=== PATIENT | male | born 1970 | race Caucasian/White ===

== ENCOUNTER 2016-11-02 09:18 | Emergency (ER) | payer OTHER ==
--- NOTE | 2016-11-02 10:07 | DIAGNOSTIC IMAGING REPORT ---
PROCEDURE: XR CHEST 1 VIEW INDICATION: CHEST PAIN TECHNIQUE: Portable AP view 09:54 a.m. COMPARISON: Chest x-ray 01/27/2016 FINDINGS: Lungs are clear. Heart and mediastinum are normal. Thorax is normal. No significant interval change. IMPRESSION: 1. Negative chest.
--- NOTE | 2016-11-02 11:50 | DIAGNOSTIC IMAGING REPORT ---
PROCEDURE: CTA THORAX ABDOMEN INDICATION: Chest pain. TECHNIQUE: 120 ml of Isovue 370 injected intravenously and axial images were obtained of the entire thorax and abdomen with 3D MIP sagittal and coronal reformations. COMPARISON: Chest x-ray 11/02/2016. FINDINGS: THORAX: Normal thoracic aorta with atherosclerosis, dissection or aneurysm. No evidence of pulmonary emboli. Lungs are clear. No effusion or adenopathy. Normal heart size. No pericardial effusion. Mild degenerative changes of the spine. ABDOMEN: No atherosclerosis, dissection or aneurysm. Cholecystectomy. Liver, pancreas, spleen, adrenal glands and kidneys are unremarkable. No retroperitoneal adenopathy. Moderate descending colon diverticulosis. Nonspecific bowel gas pattern. Surgical changes medial to the cecum suggestive of an appendectomy. No suspicious osseous lesions. IMPRESSION: 1. No evidence of an aortic aneurysm or dissection 2. No evidence of pulmonary emboli 3. Cholecystectomy 4. Descending colon diverticulosis 5. Results discussed with Dr. Ann All CT scans at this facility use dose modulation, iterative reconstruction, and/or weight-based dosing when appropriate to reduce radiation dose to as low as reasonably achievable.
--- NOTE | 2016-11-02 14:11 | ED CLINICAL REPORT ---
Clinical Report - Physicians/Mid Levels [facility] [address] [place] [address] 11/02/2016 9:18 [id number] Time Seen: 09:36 Nov 02 2016. Arrived- By private vehicle. Historian- patient. CPT: Critical care < 74 min plus (#[id number]) and 30-74 min plus (#[id number]). EKG interpretation (#[id number]). HISTORY OF PRESENT ILLNESS Chief Complaint: CHEST PAIN. At its maximum, severity described as 9 / 10. When seen in the E.D., severity described as 9 / 10. Modifying factors- worsened by exertion. Relieved by rest. It is described as pressure and it is described as located in the central chest and left chest area, neck and left shoulder. 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 Onset during light activity. No nausea, vomiting, difficulty breathing or diaphoresis. 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 ( [place] it was just related to the stress at work.). Recent medical care: Not recently seen/assessed. REVIEW OF SYSTEMS No fever, chills, cough, pedal edema or calf pain. No fainting episodes, sore throat, abdominal pain, black stools or difficulty with urination. No skin rash, enlarged lymph nodes or joint pain. All systems otherwise negative, except as recorded above. PAST HISTORY Diabetes mellitus. Hyperlipidemia. No history of aortic disease, coronary artery disease, congestive heart failure, heart rhythm problems or pulmonary embolism. No history of hypertension. No history of hiatal hernia, pancreatitis, peptic ulcer disease or gastroesophageal reflux. Medications: Something for headaches. Magnesium Oral. Atorvastatin Calcium Oral 20 mg, daily. MetFORMIN HCl Oral 500 mg, 2x a day. Allergies: None. SOCIAL HISTORY Never smoker. Occasional alcohol use. FAMILY HISTORY History of heart disease with premature onset and early in first-degree relative (mother and father). ADDITIONAL NOTES The nursing notes have been reviewed. PHYSICAL EXAM Vital Signs: 11/02/2016 09:42 BP: 152/97. HR: 80. RR: 22. O2 saturation: 97%. Temp: 98.4 F. Appearance: Alert. Anxious. Patient in mild distress. Eyes: Eyes normal inspection. ENT: Pharynx normal. Neck: Normal inspection. Neck supple. CVS: Normal heart rate and rhythm. Heart sounds normal. Pulses normal. No cardiac murmur. Respiratory: No respiratory distress. Breath sounds normal. Chest nontender. Abdomen: Soft and nontender. Bowel sounds normal. Back: Normal external inspection. No CVA tenderness. Skin: Skin warm. Normal skin color. No rash. Extremities: Extremities exhibit normal ROM. No calf tenderness. No lower extremity edema. Neuro: Oriented X 3. No motor deficit. No sensory deficit. LABS, X-RAYS, AND EKG EKG: Normal EKG. EKG #2: Normal. Chest X-ray: Normal Chest X-Ray. Chest CT: Lungs normal. Great vessels normal. Mediastinum normal. No mass, infiltrate, aortic dissection or aneurysm present or hilar adenopathy. No pericardial effusion. Chest CT performed with contrast. The study was interpreted by the radiologist and discussed with the radiologist. Laboratory Tests: CBC w Diff: (MARTINA: 11/02/2016 09:20) ( MsgRcvd 11/02/2016 10:41) Final results Test Result Flag Units (Reference) WHITE BLOOD COUNT 8.9 K/uL (4.5-11.5) RED BLOOD COUNT 4.90 M/uL (4.50-5.90) HEMOGLOBIN 14.8 gm/dL (13.5-17.5) HEMATOCRIT 44.1 % (41.0-53.0) MEAN CELL VOLUME 90 fL (80-100) MEAN CORPUSCULAR HGB 30 pg (26-34) MEAN CORPUSCULAR HGB CONC 34 g/dL (31-37) RED CELL DISTRIBUTION WIDTH 13.1 % (11.6-14.8) PLATELET COUNT 335 K/uL (150-400) NEUTROPHIL % 58.9 % (50-75) LYMPH % 30.6 % (25-40) MONO % 7.6 % (3-14) EOSINOPHIL % 2.6 % (0-4) BASOPHIL % 0.3 % (0-2) SED RATE WESTERGREN 9 mm/hr (0-15) PT with INR: (MARTINA: 11/02/2016 09:20) ( [facility] 11/02/2016 10:02) Final results Test Result Flag Units (Reference) INR 1.0 (0.8-1.2) Low Intensity Therapy: INR 1.5-2.0 PT range 18.5-23.1Mod.Intensity Therapy: INR 2.0-3.0 PT range 23.1-31.5High Intensity Therapy: INR 2.5-3.5 PT range 27.4-35.5High Intensity Therapy 2: INR 3.0-4.0 PT range 31.5-39.3 APTT 30 SECONDS (24-34) D-DIMER QUANTITATIVE < 0.27 L ug/mLFEU (0.27-0.52) The primary value of this quantitative assay relates toits negative predictive value (i.e. exclusion) of pulmonaryembolism/deep vein thrombosis/DIC.Elevated levels of d-dimer may also occur with:, age, cancer, inflammation, liver disease,post-op, infection, hematoma, coronary disease, peripheralarteriopathy, bleeding disorders and thrombolytic treatment.Results should be correlated with other clinical andradiological data.Testing Methodology: Latex Immunoassay BNP: (MARTINA: 11/02/2016 09:20) ( [facility] 11/02/2016 10:25) Final results Test Result Flag Units (Reference) B-TYPE NATRIURETIC PEPTIDE < 5.0 L pg/ml (5-100) CHEM 13 PANEL: (MARTINA: 11/02/2016 09:20) ( [facility] 11/02/2016 10:24) Final results Test Result Flag Units (Reference) GLUCOSE 94 mg/dL (70-110) BUN 15 mg/dL (7-18) CREATININE 1.0 mg/dL (0.6-1.3) Estimated GFR >60 mL/min Estimated GFR- >60 mL/min Note: Persistent reduction over 3 months in eGFR<60 mL/min/1.73 m2 defines CKD. Patients with eGFR values>=60 mL/min/1.73 m2 may also have CKD if evidence ofpersistent proteinuria. Additional information may be foundat [email or web address].org. SODIUM 143 mmol/L (136-145) POTASSIUM 4.3 mmol/L (3.5-5.1) CHLORIDE 104 mmol/L (98-107) CARBON DIOXIDE 28 mmol/L (21-32) CALCIUM 9.3 mg/dL (8.5-10.1) TOTAL PROTEIN 7.6 g/dL (6.4-8.2) ALBUMIN 4.3 g/dL (3.3-5.0) BILIRUBIN, TOTAL 1.2 H mg/dL (0.0-1.0) ALKALINE PHOSPHATASE 72 U/L (46-116) AST (SGOT) 19 U/L (15-37) ALT (SGPT) 37 U/L (12-78) MAGNESIUM 2.2 mg/dL (1.8-2.4) LIPASE 113 U/L (73-393) AMYLASE 37 U/L (25-115) CPK 243 U/L (24-260) TROPONIN I <0.05 L ng/mL (0.00-1.5) TROPONIN REFERENCE RANGE:<0.1 NEGATIVE0.1-1.5 INDETERMINANT>1.5 POSITIVE C-REACTIVE PROTEIN < 0.2 mg/dL (0.0-0.9) . PROGRESS AND PROCEDURES Course of Care: Heplock ASA 325 mg po NTG SL times 3. pain from a 9 to a 6/10. NTG paste 2" 09:43 11/02/16. Pt with severe CP that is pressure with intermittent episodes of severe sharp, stabbing pains. EKG normal . Pain responding to NTG. Pain cannot be reproduced on exam, is worse with exertion and patient has significant cardiac risk factors. Pain distribution is typical for angina. 10:15 11/02/16. NTG paste 2" Morphine 2 mg IV times Pt pain still coming and going and severe. Will try GI cocktail and if nothing helping then will send to CTA to r/o dissection. CTA negative and pt still with CP but now 4/10. Will transfer to [facility] for cardiology input and evaluation. Critical care performed (100 minutes). Time is exclusive of separately billable procedures. Time includes: direct patient care, patient reassessment, coordination of patient care, interpretation of data (laboratory data, pulse oximetry, chest xrays and prior electrocardiograms), review of patient's medical records, medical consultation, family consultation regarding treatment decisions and documentation of patient care. Procedures included in critical care time: peripheral IV placement and phlebotomy. Procedures excluded from critical care time: electrocardiography. Discussed case with on-call health care provider, (Yung: Hospitalist Karyna). Reviewed test results. Agreed upon treatment plan. Health care provider will see patient in hospital. Patient/family counseled. Disposition orders written. Disposition: Transferred to [facility]. CLINICAL IMPRESSION Unstable angina .12 lead EKG performed. (Electronically signed by Naif Ann MD 11/02/2016 20:43)
--- NOTE | 2016-11-02 14:11 | ED CLINICAL REPORT ---
Clinical Report - Physicians/Mid Levels [facility] [address] [place] [address] 11/02/2016 9:18 [id number] Time Seen: 09:36 Nov 02 2016. Arrived- By private vehicle. Historian- patient. CPT: Critical care < 74 min plus (#[id number]) and 30-74 min plus (#[id number]). EKG interpretation (#[id number]). HISTORY OF PRESENT ILLNESS Chief Complaint: CHEST PAIN. At its maximum, severity described as 9 / 10. When seen in the E.D., severity described as 9 / 10. Modifying factors- worsened by exertion. Relieved by rest. It is described as pressure and it is described as located in the central chest and left chest area, neck and left shoulder. 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 Onset during light activity. No nausea, vomiting, difficulty breathing or diaphoresis. 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 ( [place] it was just related to the stress at work.). Recent medical care: Not recently seen/assessed. REVIEW OF SYSTEMS No fever, chills, cough, pedal edema or calf pain. No fainting episodes, sore throat, abdominal pain, black stools or difficulty with urination. No skin rash, enlarged lymph nodes or joint pain. All systems otherwise negative, except as recorded above. PAST HISTORY Diabetes mellitus. Hyperlipidemia. No history of aortic disease, coronary artery disease, congestive heart failure, heart rhythm problems or pulmonary embolism. No history of hypertension. No history of hiatal hernia, pancreatitis, peptic ulcer disease or gastroesophageal reflux. Medications: Something for headaches. Magnesium Oral. Atorvastatin Calcium Oral 20 mg, daily. MetFORMIN HCl Oral 500 mg, 2x a day. Allergies: None. SOCIAL HISTORY Never smoker. Occasional alcohol use. FAMILY HISTORY History of heart disease with premature onset and early in first-degree relative (mother and father). ADDITIONAL NOTES The nursing notes have been reviewed. PHYSICAL EXAM Vital Signs: 11/02/2016 09:42 BP: 152/97. HR: 80. RR: 22. O2 saturation: 97%. Temp: 98.4 F. Appearance: Alert. Anxious. Patient in mild distress. Eyes: Eyes normal inspection. ENT: Pharynx normal. Neck: Normal inspection. Neck supple. CVS: Normal heart rate and rhythm. Heart sounds normal. Pulses normal. No cardiac murmur. Respiratory: No respiratory distress. Breath sounds normal. Chest nontender. Abdomen: Soft and nontender. Bowel sounds normal. Back: Normal external inspection. No CVA tenderness. Skin: Skin warm. Normal skin color. No rash. Extremities: Extremities exhibit normal ROM. No calf tenderness. No lower extremity edema. Neuro: Oriented X 3. No motor deficit. No sensory deficit. LABS, X-RAYS, AND EKG EKG: Normal EKG. EKG #2: Normal. Chest X-ray: Normal Chest X-Ray. Chest CT: Lungs normal. Great vessels normal. Mediastinum normal. No mass, infiltrate, aortic dissection or aneurysm present or hilar adenopathy. No pericardial effusion. Chest CT performed with contrast. The study was interpreted by the radiologist and discussed with the radiologist. Laboratory Tests: CBC w Diff: (MARTINA: 11/02/2016 09:20) ( MsgRcvd 11/02/2016 10:41) Final results Test Result Flag Units (Reference) WHITE BLOOD COUNT 8.9 K/uL (4.5-11.5) RED BLOOD COUNT 4.90 M/uL (4.50-5.90) HEMOGLOBIN 14.8 gm/dL (13.5-17.5) HEMATOCRIT 44.1 % (41.0-53.0) MEAN CELL VOLUME 90 fL (80-100) MEAN CORPUSCULAR HGB 30 pg (26-34) MEAN CORPUSCULAR HGB CONC 34 g/dL (31-37) RED CELL DISTRIBUTION WIDTH 13.1 % (11.6-14.8) PLATELET COUNT 335 K/uL (150-400) NEUTROPHIL % 58.9 % (50-75) LYMPH % 30.6 % (25-40) MONO % 7.6 % (3-14) EOSINOPHIL % 2.6 % (0-4) BASOPHIL % 0.3 % (0-2) SED RATE WESTERGREN 9 mm/hr (0-15) PT with INR: (MARTINA: 11/02/2016 09:20) ( [facility] 11/[place] 10:02) Final results Test Result Flag Units (Reference) INR 1.0 (0.8-1.2) Low Intensity Therapy: INR 1.5-2.0 PT range 18.5-23.1Mod.Intensity Therapy: INR 2.0-3.0 PT range 23.1-31.5High Intensity Therapy: INR 2.5-3.5 PT range 27.4-35.5High Intensity Therapy 2: INR 3.0-4.0 PT range 31.5-39.3 APTT 30 SECONDS (24-34) D-DIMER QUANTITATIVE < 0.27 L ug/mLFEU (0.27-0.52) The primary value of this quantitative assay relates toits negative predictive value (i.e. exclusion) of pulmonaryembolism/deep vein thrombosis/DIC.Elevated levels of d-dimer may also occur with:, age, cancer, inflammation, liver disease,post-op, infection, hematoma, coronary disease, peripheralarteriopathy, bleeding disorders and thrombolytic treatment.Results should be correlated with other clinical andradiological data.Testing Methodology: Latex Immunoassay BNP: (MARTINA: 11/02/2016 09:20) ( [facility] [facility] 11/02/2016 10:25) Final results Test Result Flag Units (Reference) B-TYPE NATRIURETIC PEPTIDE < 5.0 L pg/ml (5-100) CHEM 13 PANEL: (MARTINA: 11/02/2016 09:20) ( [facility] [place]/02/[place] 10:24) Final results Test Result Flag Units (Reference) GLUCOSE 94 mg/dL (70-110) BUN 15 mg/dL (7-18) CREATININE 1.0 mg/dL (0.6-1.3) Estimated GFR >60 mL/min Estimated GFR- >60 mL/min Note: Persistent reduction over 3 months in eGFR<60 mL/min/1.73 m2 defines CKD. Patients with eGFR values>=60 mL/min/1.73 m2 may also have CKD if evidence ofpersistent proteinuria. Additional information may be foundat [email or web address]. SODIUM 143 mmol/L (136-145) POTASSIUM 4.3 mmol/L (3.5-5.1) CHLORIDE 104 mmol/L (98-107) CARBON DIOXIDE 28 mmol/L (21-32) CALCIUM 9.3 mg/dL (8.5-10.1) TOTAL PROTEIN 7.6 g/dL (6.4-8.2) ALBUMIN 4.3 g/dL (3.3-5.0) BILIRUBIN, TOTAL 1.2 H mg/dL (0.0-1.0) ALKALINE PHOSPHATASE 72 U/L (46-116) AST (SGOT) 19 U/L (15-37) ALT (SGPT) 37 U/L (12-78) MAGNESIUM 2.2 mg/dL (1.8-2.4) LIPASE 113 U/L (73-393) AMYLASE 37 U/L (25-115) CPK 243 U/L (24-260) TROPONIN I <0.05 L ng/mL (0.00-1.5) TROPONIN REFERENCE RANGE:<0.1 NEGATIVE0.1-1.5 INDETERMINANT>1.5 POSITIVE C-REACTIVE PROTEIN < 0.2 mg/dL (0.0-0.9) . PROGRESS AND PROCEDURES Course of Care: Heplock ASA 325 mg po NTG SL times 3. pain from a 9 to a 6/10. NTG paste 2" 09:43 11/02/16. Pt with severe CP that is pressure with intermittent episodes of severe sharp, stabbing pains. EKG normal . Pain responding to NTG. Pain cannot be reproduced on exam, is worse with exertion and patient has significant cardiac risk factors. Pain distribution is typical for angina. 10:15 11/02/16. NTG paste 2" Morphine 2 mg IV times Pt pain still coming and going and severe. Will try GI cocktail and if nothing helping then will send to CTA to r/o dissection. CTA negative and pt still with CP but now 4/10. Will transfer to [facility] for cardiology input and evaluation. Critical care performed (100 minutes). Time is exclusive of separately billable procedures. Time includes: direct patient care, patient reassessment, coordination of patient care, interpretation of data (laboratory data, pulse oximetry, chest xrays and prior electrocardiograms), review of patient's medical records, medical consultation, family consultation regarding treatment decisions and documentation of patient care. Procedures included in critical care time: peripheral IV placement and phlebotomy. Procedures excluded from critical care time: electrocardiography. Discussed case with on-call health care provider, (Yung: Hospitalist Karyna). Reviewed test results. Agreed upon treatment plan. Health care provider will see patient in hospital. Patient/family counseled. Disposition orders written. Disposition: Transferred to [facility]. CLINICAL IMPRESSION Unstable angina .12 lead EKG performed. (Electronically signed by Naif Ann MD 11/02/2016 20:43)
--- NOTE | 2016-11-02 14:11 | ED NURSING NOTES ---
Clinical Report - Nurses [facility] [address] [place] [place] [address] 11/02/2016 9:18 [id number] Triage time 09:16. Acuity: LEVEL 3. Chief Complaint: CHEST PAIN. --09:48 Chan Davis R.N. 09:42 11/02/16. BP: 152/97. HR: 80. RR: 22. O2 saturation: 97%. Temp: 98.4 F. Pain level now 02/13. --09:48 Chan Davis R.N. Weight: 121.5 kg stated. Height/Length: 70 inches Per Patient. BMI: 38.4. --09:47 Chan Davis R.N. Medications Atorvastatin Calcium Oral 20 mg, daily. MetFORMIN HCl Oral 500 mg, 2x a day. --09:44 Chan Davis R.N. Magnesium Oral. --09:44 Chan Davis R.N. Something for headaches. --09:45 Chan Davis R.N. Allergies None. --09:44 Chan Davis R.N. History Arrived by private vehicle. Historian: patient. Accompanied by friend. Started while participating in light activity. Symptoms are constant and still present (30 minutes ago). He has had difficulty breathing. Reports experiencing sweating episodes. ( 10/10 feels like an elephant is sitting on my chest. Pain radiates down left arm and into jaw). No nausea. 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 PAST MEDICAL HX: Diabetes mellitus. FALL RISK ASSESSMENT: Fall risk assessment completed. No fall risk identified. NUTRITIONAL RISK ASSESSMENT: The nutritional risk assessment revealed no deficiencies. FUNCTIONAL ASSESSMENT: Functional assessment: no impairments noted. LEARNING NEEDS ASSESSMENT: The learning needs assessment revealed no barriers. SKIN INTEGRITY ASSESSMENT: Skin integrity risk assessment completed. No skin integrity risk identified. --09:48 Chan Davis R.N. <<STRICKEN ENTRY-- ( Pt was at work this afternoon when he started feeling unwell, describes his symptoms as numbness and tingling to the R side of his face and R arm, according to Pt was also notable for slurred speech. Upon arrival to ED, Pt reports his symptoms have subsided, denies dizziness or numbness and tingling.). --14:06 Antony Romero R.N. --END STRIKE>> Charted On Wrong Patient --14:07 Antony Romero R.N. Interventions ID band on patient. --09:48 Chan Davis R.N. PHYSICAL ASSESSMENT GENERAL / NEURO / PSYCH: Alert. Oriented X 4. Appears anxious and in distress. RESPIRATORY: Mild respiratory distress. CVS: Normal sinus rhythm noted. GI / : Abdomen soft. SKIN: Skin is warm and dry. --09:49 Chan Davis R.N. NURSING PROGRESS NOTES Oxygen administered. air sampling and monitoring, pulse oximeter and NIBP monitor placed on patient; director of cardiac cath lab- Lead II. Two patient identifiers checked. Call light placed in reach. Side rails up x 1. Bed placed in lowest position. --09:50 Chan Davis R.N. 09:20 11/02/2016 Site #1 started via IV in the left wrist with an 20g angiocath, with aseptic technique; one attempt. Blood drawn: rainbow set. Labeled in the presence of the patient and sent to the lab. Saline lock flushed with 10 mL saline. --09:53 Chan Davis R.N. 09:28 11/02/2016 Nitroglycerin SL Tablets 0.4 mg given. Allergies verified and confirmed 5 rights. --09:54 Chan Davis R.N. 09:33 11/02/2016 Nitroglycerin SL Tablets 0.4 mg given. --09:55 Chan Davis R.N. 09:35 11/02/2016 Aspirin PO Tablets 324 mg given. --09:55 Chan Davis R.N. late entry - 09:19. EKG time: (917). EKG was performed by a oc and shown to the ED physician. --10:35 Fide Shaw 09:35 11/02/2016 Tylenol (Acetaminophen) PO Tablets 650 mg given. Allergies verified and confirmed 5 rights. --10:45 Chan Davis R.N. 09:41 11/02/2016 NITROGLYCERIN PASTE Topical Paste 1 inch. --11:00 Chan Davis R.N. 09:58 11/02/2016 Morphine IVP 2 mg given. via site #1. Allergies verified, confirmed 5 rights and sedative warning given to the patient. IV patency established. IV site checked: no pain, redness, or swelling. IV flushed thoroughly pre- and post-medication administration. IVP given by RN. --10:53 Chan Davis R.N. 10:06 11/02/2016 Morphine IVP 2 mg given over 1 minute(s) via site #1. Allergies verified, confirmed 5 rights and sedative warning given to the patient. IV patency established. IV site checked: no pain, redness, or swelling. IV flushed thoroughly pre- and post-medication administration. IVP given by RN. --10:54 Chan Davis R.N. 10:12 11/02/2016 GI COCKTAIL WHITE (Simethicone) PO Oral Suspension 30 mL given. --10:57 Chan Davis R.N. 10:20 11/02/2016 Morphine IVP 2 mg given over 1 minute(s) via site #1. Allergies verified, confirmed 5 rights and sedative warning given to the patient. IV patency established. IV site checked: no pain, redness, or swelling. IV flushed thoroughly pre- and post-medication administration. IVP given by RN. --10:55 Chan Davis R.N. 10:20 11/02/2016 Ativan (LORazepam) IVP 0.5 mg given over 1 minute(s) via site #1. Allergies verified, confirmed 5 rights and sedative warning given to the patient. IV patency established. IV site checked: no pain, redness, or swelling. IV flushed thoroughly pre- and post-medication administration. IVP given by RN. --10:59 Chan Davis R.N. 10:35 11/02/16. EKG time: (1029). EKG was performed by a tech and shown to the ED physician. repeat. --10:35 Fide Shaw 09:25. ( Patient continues complaining of severe chest pain, 10/10 radiating down left arm and into left jaw. Dr Ann notified, orders received.). --11:09 Chan Davis R.N. 09:30. ( Patient states pain is decreased from 9/10 to 6/10 after SL Nitro). --11:10 Chan Davis R.N. 09:35. ( Patient states no improvement after second nitro.). --11:11 Chan Davis R.N. 09:35. ( Complaining of headache after Nitro tabs. Order received for Tylenol). --11:17 Chan Davis R.N. 09:40. ( States pain is 8/10 again. Nitro paste applied). --11:12 Chan Davis R.N. 09:58. ( Crescendo pain, 10/10 at it's worst. Sometimes subsides to 8/10. States radiates to left arm and jaw. Dr Ann notified. Orders received). --11:14 Chan Davis R.N. 10:05. ( No relief from Morphine 2 mg IV.). --11:15 Chan Davis R.N. 10:20. ( No change in symptoms. Continues to have chest pain 8/10 and intermittently 10/10. Dr Ann notified. Orders received.). --11:16 Chan Davis R.N. 11:05. ( Patient states more comfortable now. Appears more relaxed. States pain is 4/10). --11:18 Chan Davis R.N. 11:05. Patient transported to CT by stretcher with tech. --11:18 Chan Davis R.N. Patient returned from CT by stretcher with nurse. --11:35 Chan Davis R.N. ( CT complete. All vital sign monitors applied. Remains in SR. States pain is 4/10. States pain is worse with exertion.). --11:37 Chan Davis R.N. 12:12 11/02/2016 Toradol IVP 30 mg given. via site #1. --12:12 Chan Davis R.N. 12:14 11/02/2016 Ativan (LORazepam) IVP 0.5 mg given over 1 minute(s) via site #1. --12:14 Chan Davis R.N. ( Blood drawn from IV for Troponin). --12:54 Chan Davis R.N. 12:58 11/02/16. BP: 112/63. HR: 71. RR: 18. Temp: 100 F. --12:59 Jazlyn Alford R.N. ( Patient rounding). --12:59 Jazlyn Alford R.N. 13:17 11/02/16. BP: 113/67. HR: 73. RR: 16. O2 saturation: 99% on nasal cannula at 2 liters/minute. Pain level now: 10/14. --13:18 Antony Romero R.N. ( Covering for Primary RN during break. Pt is resting, pain is slowly increasing, VSS.). --13:18 Antony Romero R.N. 14:18 11/02/2016 Dilaudid (HYDROmorphone HCl PF) IVP 1 mg given. via site #1. Allergies verified, confirmed 5 rights and sedative warning given to the patient and patient's family. IV patency established. IV site checked: no pain, redness, or swelling. IV flushed thoroughly pre- and post-medication administration. --14:23 Chan Davis R.N. 14:15. ( Patient called and states the pain is getting worse. Now 12/14. Dr Ann notified.). --15:09 Chan Davis R.N. 14:30. ( States pain is /10). --15:12 Chan Davis R.N. 12:30 11/02/16. BP: 114/66. HR: 79. RR: 20. O2 saturation: 99%. Pain level now: 12/14. --15:15 Chan Davis R.N. 13:00 11/02/16. BP: 113/67. HR: 74. RR: 20. O2 saturation: 100%. Temp: 98.4 F. Pain level now: 10/14. --15:16 Chan Davis R.N. 13:30 11/02/16. BP: 114/66. HR: 68. RR: 20. O2 saturation: 99%. Pain level now: 08/14. --15:17 Chan Davis R.N. 14:00 11/02/16. BP: 96/47. HR: 80. RR: 18. O2 saturation: 99%. Temp: 97.6 F. Pain level now: 09/13. --15:19 Chan Davis R.N. 15:00 11/02/16. BP: 120/86. HR: 88. RR: 20. O2 saturation: 96%. Pain level now: 08/14. --15:20 Chan Davis R.N. ( Ambulated to bathroom to void). --15:21 Chan Davis R.N. 15:00. ( Placed on end tidal CO2 monitor). --16:12 Chan Davis R.N. 16:30 11/02/16. BP: 118/80. HR: 80. RR: 20. O2 saturation: 97%. End tidal CO2: 32 mmHg. Pain level now: 08/14. --16:53 Chan Davis R.N. DISPOSITION / DISCHARGE Cardiac rhythm: normal sinus rhythm. Condition at departure: improved. Transferred to [facility]. Summary of care provided to transport team and transfer facility via paper. ( Report called to [facility]). --16:52 Chan Davis R.N. 16:51 11/02/16. BP: 115/74. HR: 88. RR: 20. O2 saturation: 96%. Temp: 98.8 F. End tidal CO2: 31mmHg. Pain level now 08/14. --16:52 Chan Davis R.N. Departure time: 17:20. --17:30 hCan Davis R.N. Locked/Released at 11/02/2016 17:30 by Chan Davis R.N.
--- NOTE | 2016-11-02 14:11 | ED NURSING NOTES ---
Clinical Report - Nurses [facility] [address] [place] [address] 11/02/2016 9:18 [id number] Triage time 09:16. Acuity: LEVEL 3. Chief Complaint: CHEST PAIN. --09:48 Chan Davis R.N. 09:42 11/02/16. BP: 152/97. HR: 80. RR: 22. O2 saturation: 97%. Temp: 98.4 F. Pain level now 02/13. --09:48 Chan Davis R.N. Weight: 121.5 kg stated. Height/Length: 70 inches Per Patient. BMI: 38.4. --09:47 Chan Davis R.N. Medications Atorvastatin Calcium Oral 20 mg, daily. MetFORMIN HCl Oral 500 mg, 2x a day. --09:44 Chan Davis R.N. Magnesium Oral. --09:44 Chan Davis R.N. Something for headaches. --09:45 Chan Davis R.N. Allergies None. --09:44 Chan Davis R.N. History Arrived by private vehicle. Historian: patient. Accompanied by friend. Started while participating in light activity. Symptoms are constant and still present (30 minutes ago). He has had difficulty breathing. Reports experiencing sweating episodes. ( 10/10 feels like an elephant is sitting on my chest. Pain radiates down left arm and into jaw). No nausea. 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 PAST MEDICAL HX: Diabetes mellitus. FALL RISK ASSESSMENT: Fall risk assessment completed. No fall risk identified. NUTRITIONAL RISK ASSESSMENT: The nutritional risk assessment revealed no deficiencies. FUNCTIONAL ASSESSMENT: Functional assessment: no impairments noted. LEARNING NEEDS ASSESSMENT: The learning needs assessment revealed no barriers. SKIN INTEGRITY ASSESSMENT: Skin integrity risk assessment completed. No skin integrity risk identified. --09:48 Chan Davis R.N. <<STRICKEN ENTRY-- ( Pt was at work this afternoon when he started feeling unwell, describes his symptoms as numbness and tingling to the R side of his face and R arm, according to Pt was also notable for slurred speech. Upon arrival to ED, Pt reports his symptoms have subsided, denies dizziness or numbness and tingling.). --14:06 Antony Romero R.N. --END STRIKE>> Charted On Wrong Patient --14:07 Antony Romero R.N. Interventions ID band on patient. --09:48 Chan Davis R.N. PHYSICAL ASSESSMENT GENERAL / NEURO / PSYCH: Alert. Oriented X 4. Appears anxious and in distress. RESPIRATORY: Mild respiratory distress. CVS: Normal sinus rhythm noted. GI / : Abdomen soft. SKIN: Skin is warm and dry. --09:49 Chan Davis R.N. NURSING PROGRESS NOTES Oxygen administered. chip mucker, pulse oximeter and NIBP monitor placed on patient; termite treater helper- Lead II. Two patient identifiers checked. Call light placed in reach. Side rails up x 1. Bed placed in lowest position. --09:50 Chan Davis R.N. 09:20 11/02/2016 Site #1 started via IV in the left wrist with an 20g angiocath, with aseptic technique; one attempt. Blood drawn: rainbow set. Labeled in the presence of the patient and sent to the lab. Saline lock flushed with 10 mL saline. --09:53 Chan Davis R.N. 09:28 11/02/2016 Nitroglycerin SL Tablets 0.4 mg given. Allergies verified and confirmed 5 rights. --09:54 Chan Davis R.N. 09:33 11/02/2016 Nitroglycerin SL Tablets 0.4 mg given. --09:55 Chan Davis R.N. 09:35 11/02/2016 Aspirin PO Tablets 324 mg given. --09:55 Chan Davis R.N. late entry - 09:19. EKG time: (917). EKG was performed by a oc and shown to the ED physician. --10:35 Fide Shaw 09:35 11/02/2016 Tylenol (Acetaminophen) PO Tablets 650 mg given. Allergies verified and confirmed 5 rights. --10:45 Chan Davis R.N. 09:41 11/02/2016 NITROGLYCERIN PASTE Topical Paste 1 inch. --11:00 Chan Davis R.N. 09:58 11/02/2016 Morphine IVP 2 mg given. via site #1. Allergies verified, confirmed 5 rights and sedative warning given to the patient. IV patency established. IV site checked: no pain, redness, or swelling. IV flushed thoroughly pre- and post-medication administration. IVP given by RN. --10:53 Chan Davis R.N. 10:06 11/02/2016 Morphine IVP 2 mg given over 1 minute(s) via site #1. Allergies verified, confirmed 5 rights and sedative warning given to the patient. IV patency established. IV site checked: no pain, redness, or swelling. IV flushed thoroughly pre- and post-medication administration. IVP given by RN. --10:54 Chan Davis R.N. 10:12 11/02/2016 GI COCKTAIL WHITE (Simethicone) PO Oral Suspension 30 mL given. --10:57 Chan Davis R.N. 10:20 11/02/2016 Morphine IVP 2 mg given over 1 minute(s) via site #1. Allergies verified, confirmed 5 rights and sedative warning given to the patient. IV patency established. IV site checked: no pain, redness, or swelling. IV flushed thoroughly pre- and post-medication administration. IVP given by RN. --10:55 Chan Davis R.N. 10:20 11/02/2016 Ativan (LORazepam) IVP 0.5 mg given over 1 minute(s) via site #1. Allergies verified, confirmed 5 rights and sedative warning given to the patient. IV patency established. IV site checked: no pain, redness, or swelling. IV flushed thoroughly pre- and post-medication administration. IVP given by RN. --10:59 Chan Davis R.N. 10:35 11/02/16. EKG time: (1029). EKG was performed by a tech and shown to the ED physician. repeat. --10:35 Fide Shaw 09:25. ( Patient continues complaining of severe chest pain, 10/10 radiating down left arm and into left jaw. Dr Ann notified, orders received.). --11:09 Chan Davis R.N. 09:30. ( Patient states pain is decreased from 9/10 to 6/10 after SL Nitro). --11:10 Chan Davis R.N. 09:35. ( Patient states no improvement after second nitro.). --11:11 Chan Davis R.N. 09:35. ( Complaining of headache after Nitro tabs. Order received for Tylenol). --11:17 Chan Davis R.N. 09:40. ( States pain is 8/10 again. Nitro paste applied). --11:12 Chan Davis R.N. 09:58. ( Crescendo pain, 10/10 at it's worst. Sometimes subsides to 8/10. States radiates to left arm and jaw. Dr Ann notified. Orders received). --11:14 Chan Davis R.N. 10:05. ( No relief from Morphine 2 mg IV.). --11:15 Chan Davis R.N. 10:20. ( No change in symptoms. Continues to have chest pain 8/10 and intermittently 10/10. Dr Ann notified. Orders received.). --11:16 Chan Davis R.N. 11:05. ( Patient states more comfortable now. Appears more relaxed. States pain is 4/10). --11:18 Chan Davis R.N. 11:05. Patient transported to CT by stretcher with tech. --11:18 Chan Davsi R.N. Patient returned from CT by stretcher with nurse. --11:35 Chan Davis R.N. ( CT complete. All vital sign monitors applied. Remains in SR. States pain is 4/10. States pain is worse with exertion.). --11:37 Chan Davis R.N. 12:12 11/02/2016 Toradol IVP 30 mg given. via site #1. --12:12 Chan Davis R.N. 12:14 11/02/2016 Ativan (LORazepam) IVP 0.5 mg given over 1 minute(s) via site #1. --12:14 Chan Davis R.N. ( Blood drawn from IV for Troponin). --12:54 Chan Davis R.N. 12:58 11/02/16. BP: 112/63. HR: 71. RR: 18. Temp: 100 F. --12:59 Jazlyn Alford R.N. ( Patient rounding). --12:59 Jazlyn Alford R.N. 13:17 11/02/16. BP: 113/67. HR: 73. RR: 16. O2 saturation: 99% on nasal cannula at 2 liters/minute. Pain level now: 10/14. --13:18 Antony Romero R.N. ( Covering for Primary RN during break. Pt is resting, pain is slowly increasing, VSS.). --13:18 Antony Romero R.N. 14:18 11/02/2016 Dilaudid (HYDROmorphone HCl PF) IVP 1 mg given. via site #1. Allergies verified, confirmed 5 rights and sedative warning given to the patient and patient's family. IV patency established. IV site checked: no pain, redness, or swelling. IV flushed thoroughly pre- and post-medication administration. --14:23 Chan Davis R.N. 14:15. ( Patient called and states the pain is getting worse. Now 12/14. Dr Ann notified.). --15:09 Chan Davis R.N. 14:30. ( States pain is /10). --15:12 Chan Davis R.N. 12:30 11/02/16. BP: 114/66. HR: 79. RR: 20. O2 saturation: 99%. Pain level now: 12/14. --15:15 Chan Davis R.N. 13:00 11/02/16. BP: 113/67. HR: 74. RR: 20. O2 saturation: 100%. Temp: 98.4 F. Pain level now: 10/14. --15:16 Chan Davis R.N. 13:30 11/02/16. BP: 114/66. HR: 68. RR: 20. O2 saturation: 99%. Pain level now: 08/14. --15:17 Chan Davis R.N. 14:00 11/02/16. BP: 96/47. HR: 80. RR: 18. O2 saturation: 99%. Temp: 97.6 F. Pain level now: 09/13. --15:19 Chan Davis R.N. 15:00 11/02/16. BP: 120/86. HR: 88. RR: 20. O2 saturation: 96%. Pain level now: 08/14. --15:20 Chan Davis R.N. ( Ambulated to bathroom to void). --15:21 Chan Davis R.N. 15:00. ( Placed on end tidal CO2 monitor). --16:12 Chan Davis R.N. 16:30 11/02/16. BP: 118/80. HR: 80. RR: 20. O2 saturation: 97%. End tidal CO2: 32 mmHg. Pain level now: 08/14. --16:53 Chan Davis R.N. DISPOSITION / DISCHARGE Cardiac rhythm: normal sinus rhythm. Condition at departure: improved. Transferred to [facility]. Summary of care provided to transport team and transfer facility via paper. ( Report called to [facility]). --16:52 Chan Davis R.N. 16:51 11/02/16. BP: 115/74. HR: 88. RR: 20. O2 saturation: 96%. Temp: 98.8 F. End tidal CO2: 31mmHg. Pain level now 08/14. --16:52 Chan Davis R.N. Departure time: 17:20. --17:30 Chan Davis R.N. Locked/Released at 11/02/2016 17:30 by Chan Davis R.N.
--- NOTE | 2016-11-02 14:12 | ED ORDER SUMMARY ---
..... Patient: ANUSHKA GIANG OrderSheet [facility] VisitID: [id number] [place] [address] 46y, M Registration Date/Time: 11/02/2016 ORDER SHEET Weight: 121.5 kg (stated) Allergies: None GENERAL ORDERS: Associate Professor Of Physics (Continuous) (:11/02/2016 Scotty SOUSA) (9:56 GMarshall R.N.) Chest 1V Urgent (:11/02/2016 Scotty SOUSA) (Ack 9:44 Geovanni) (9:56 GMarshall R.N.) Cardiac Panel Stat (11/02/2016 Scotty SOUSA) (Ack 9:44 Geovanni) (9:56 GMarshall R.N.) PTT Urgent (:11/02/2016 Scotty SOUSA) (Ack 9:44 Geovanni) (9:56 GMarshall R.N.) PT with INR Urgent (:11/02/2016 Scotty SOUSA) (Ack 9:44 Geovanni) (9:56 GMarshall R.N.) BNP Urgent (:11/02/2016 Scotty SOUSA) (Ack 9:44 Geovanni) (9:56 GMarshall R.N.) D-Dimer Urgent (:11/02/2016 Scotty SOUSA) (Ack 9:44 Geovanni) (9:56 GMarshall R.N.) Lipase Urgent (:11/02/2016 Scotty SOUSA) (Ack 9:44 Geovanni) (9:56 GMarshall R.N.) Amylase Urgent (:11/02/2016 Scotty SOUSA) (Ack 9:44 Geovanni) (9:56 GMarshall R.N.) CRP Urgent (:11/02/2016 Scotty SOUSA) (Ack 9:44 Geovanni) (9:56 GMarshall R.N.) ESR Urgent (:11/02/2016 Scotty SOUSA) (Ack 9:44 KHoerisaias) (9:56 GMarshall R.N.) Oxygen (2 L/min) (NC) (09:41 11/02/2016 Scotty SOUSA) (9:56 GMarshall R.N.) Pulse oximeter (09:41 11/02/2016 Scotty SOUSA) (9:56 GMarshall R.N.) EKG - ER Stat (09:11/02/2016 Scotty SOUSA) (9:44 KHoerner) CTA Thorax w Cont (Yes) (pending) Urgent (10:21 11/02/2016 Scotty SOUSA) (Ack 10:24 HOLLYoeashlyn) (Cancelled: Other10:51 Scotty SOUSA) EKG - ER Stat (10:22 11/02/2016 Scotty SOUSA) (10:35 KHoerner) CTA Thorax/Abdomen (Yes) (pending) Urgent (10:51 11/02/2016 Scotty SOUSA) (Ack 10:56 TBergley) (12:14 GMarshall R.N.) Troponin-I Urgent (12:42 11/02/2016 Scotty SOUSA) (Ack 12:43 Geovanni) (14:26 GMarshall R.N.) MEDICATION ORDERS: NitroGLYCERIN SL 0.4 mg (x3 PRN Chest Pain) (09:42 11/02/2016 Scotty SOUSA) (9:54 GMarshall R.N.) Aspirin PO 325 mg (NOW) (09:42 11/02/2016 Scotty SOUSA) (9:55 GMarshall R.N.) GI Cocktail WHITE PO 30 mL with Lidocaine Viscous Mouth/Throat 15 mL, Maalox Plus Oral 15 mL (NOW); Luther (10:39 11/02/2016 GMarshall R.N. verbal order read back to Scotty SOUSA) (10:57 GMarshall R.N.) Verbal order read back and verified Tylenol PO 650 mg (NOW) (10:44 11/02/2016 GMarshall R.N. verbal order read back to Scotty SOUSA) (10:45 GMarshall R.N.) NitroGLYCERIN Paste Topical 1 in. (NOW) (11:00 11/02/2016 GMarshall R.N. verbal order read back to Scotty SOUSA) (11:00 GMarshall R.N.) - (ETC02) (14:30 11/02/2016 Scotty SOUSA) (Ack 16:47 GMarshall R.N.) IV FLUIDS: IV Saline Lock (09:41 11/02/2016 Scotty SOUSA) (9:56 GMarshall R.N.) Morphine IV 2 mg (NOW) (Sched q5m for X3) (Titrate for pain relief) (Sched q5m for X3) (10:37 11/02/2016 GMarshall R.N. verbal order read back to Scotty SOUSA) (10:53 GMarshall R.N.) Morphine IV 2 mg (NOW) (Sched q5m for X3) (Titrate for pain relief) (10:42 11/02/2016 GMarshall R.N. verbal order read back to Scotty SOUSA) (10:54 GMarshall R.N.) Morphine IV 2 mg (NOW) (Sched q5m for X3) (Titrate for pain relief) (10:47 11/02/2016 GMarshall R.N. verbal order read back to Scotty SOUSA) (10:55 GMarshall R.N.) Ativan IV 0.5 mg (NOW) (10:58 11/02/2016 GMarshall R.N. verbal order read back to Scotty SOUSA) (10:59 GMarshall R.N.) Toradol IV 30 mg (NOW) (11:50 11/02/2016 Scotty SOUSA) (12:12 GMarshall R.N.) Toradol IV 30 mg (NOW) (12:11 11/02/2016 GMarshall R.N. verbal order read back to Scotty SOUSA) (Cancelled: Physician Order13:05 Tenane R.N.) Atropine IV 0.5 mg (NOW) (12:11 11/02/2016 GMarshall R.N. verbal order read back to Scotty SOUSA) (Cancelled: Wrong Order13:05 JAEayne R.N.) Ativan IV 0.5 mg (NOW) (12:13 11/02/2016 GMarshall R.N. verbal order read back to Scotty SOUSA) (12:14 GMarshall R.N.) Dilaudid IV 1 mg (NOW) (14:15 11/02/2016 Scotty SOUSA) (14:23 GMarshall R.N.) ORDER SHEET NOTES: [Electronically signed by Chan Davis R.N. (17:30 11/02/2016)] [Electronically signed by Naif Ann MD (20:43 11/02/2016)] [Electronically locked/signed by Chan Davis R.N. (17:30 11/02/2016)]
--- NOTE | 2016-11-02 20:43 | ED MED RECONCILIATION SUMMARY ---
Patient: ANUSHKA GIANG Medication Reconciliation Report [facility] VisitID: [id number] [address] [place] [address] 46y, M Registration Date/Time: 11/02/2016 Weight: 121.5 kg Height/Length: 70 in. BMI: 38.4 ALLERGIES: None The patient's Home Medications are listed below: THE FOLLOWING MEDICATIONS NEED TO BE RECONCILED: Atorvastatin Calcium Oral 20 mg, daily Magnesium Oral MetFORMIN HCl Oral 500 mg, 2x a day Something for headaches The source(s) of the original Home Medication information: Not obtained. The following Medications were given to the patient in the Emergency Department: Nitroglycerin [SL] SL 0.4 mg, administered: 11/02/2016 9:28:00 AM Nitroglycerin [SL] SL 0.4 mg, administered: 11/02/2016 9:33:00 AM Aspirin [PO] PO 324 mg, administered: 11/02/2016 9:35:00 AM Tylenol [PO] PO 650 mg, administered: 11/02/2016 9:35:00 AM Morphine [IVP] IVP 2 mg, administered: 11/02/2016 9:58:00 AM Morphine [IVP] IVP 2 mg, administered: 11/02/2016 10:06:00 AM Morphine [IVP] IVP 2 mg, administered: 11/02/2016 10:20:00 AM GI COCKTAIL WHITE [PO] PO 30 mL, administered: 11/02/2016 10:12:00 AM Ativan [IVP] IVP 0.5 mg, administered: 11/02/2016 10:20:00 AM NITROGLYCERIN PASTE [TOPICAL] Topical 1 in., administered: 11/02/2016 9:41:00 AM Toradol [IVP] IVP 30 mg, administered: 11/02/2016 12:12:00 PM Ativan [IVP] IVP 0.5 mg, administered: 11/02/2016 12:14:00 PM Dilaudid [IVP] IVP 1 mg, administered: 11/02/2016 2:18:00 PM The following Medications were prescribed to the patient: None.
--- NOTE | 2016-11-02 20:43 | ED MAR SUMMARY ---
..... Medication Administration Record [facility] [address] [facility] [place] [address] Patient: ANUSHKA GIANG Visit ID: [id number] 46y, M Weight: 121.5 kg Height/Length: 70 in BMI: 38.4 ALLERGIES: None Given 09:28 11/02/2016 Chan Davis R.N. Medication Administered: NITROGLYCERIN [SL], Dose: 0.4 mg Tablets SL. Medication Ordered: NitroGLYCERIN SL 0.4 mg (x3 PRN Chest Pain). Given 09:33 11/02/2016 Chan Davis R.N. Medication Administered: NITROGLYCERIN [SL], Dose: 0.4 mg Tablets SL. Medication Ordered: NitroGLYCERIN SL 0.4 mg (x3 PRN Chest Pain). Given 09:35 11/02/2016 Chan Davis R.N. Medication Administered: ASPIRIN [PO], Dose: 324 mg Tablets PO. Medication Ordered: Aspirin PO 325 mg (NOW). Given 09:35 11/02/2016 Chan Davis R.N. Medication Administered: TYLENOL [PO] (ACETAMINOPHEN), Dose: 650 mg Tablets PO. Medication Ordered: Tylenol PO 650 mg (NOW). Given 09:41 11/02/2016 Chan Davis R.N. Medication Administered: NITROGLYCERIN PASTE [TOPICAL], Dose: 1 in. Paste Topical. Medication Ordered: NitroGLYCERIN Paste Topical 1 in. (NOW). Given 09:58 11/02/2016 Chan Davis R.N. Medication Administered: MORPHINE [IVP], Dose: 2 mg IVP, Site: #1 left wrist. Medication Ordered: Morphine IV 2 mg (NOW) (Sched q5m for X3) (Titrate for pain relief) 1 of 3. Given 10:11/02/2016 Chan Davis R.N. Medication Administered: MORPHINE [IVP], Dose: 2 mg IVP over 1 minute(s), Site: #1 left wrist. Medication Ordered: Morphine IV 2 mg (NOW) (Sched q5m for X3) (Titrate for pain relief) 2 of 3. Given 10:12 11/02/2016 Chan Davis R.N. Medication Administered: GI COCKTAIL WHITE [PO] (SIMETHICONE), Dose: 30 mL Oral Suspension PO. Medication Ordered: GI Cocktail WHITE PO 30 mL with Lidocaine Viscous Mouth/Throat 15 mL, Maalox Plus Oral 15 mL (NOW); Luther. Given 10:11/02/2016 Chan Davis R.N. Medication Administered: ATIVAN [IVP] (LORAZEPAM), Dose: 0.5 mg IVP over 1 minute(s), Site: #1 left wrist. Medication Ordered: Ativan IV 0.5 mg (NOW). Given 10:11/02/2016 Chan Davis R.N. Medication Administered: MORPHINE [IVP], Dose: 2 mg IVP over 1 minute(s), Site: #1 left wrist. Medication Ordered: Morphine IV 2 mg (NOW) (Sched q5m for X3) (Titrate for pain relief) 3 of 3. Given 12:12 11/02/2016 Chan Davis R.N. Medication Administered: TORADOL [IVP], Dose: 30 mg IVP, Site: #1 left wrist. Medication Ordered: Toradol IV 30 mg (NOW). Given 12:14 11/02/2016 Chan Davis R.N. Medication Administered: ATIVAN [IVP] (LORAZEPAM), Dose: 0.5 mg IVP over 1 minute(s), Site: #1 left wrist. Medication Ordered: Ativan IV 0.5 mg (NOW). Given 14:18 11/02/2016 Chan Davis R.N. Medication Administered: DILAUDID [IVP] (HYDROMORPHONE HCL PF), Dose: 1 mg IVP, Site: #1 left wrist. Medication Ordered: Dilaudid IV 1 mg (NOW).
--- NOTE | 2016-11-02 20:43 | ED MAR SUMMARY ---
..... Medication Administration Record [facility] [address] [facility] [place] [address] Patient: ANUSHKA GIANG Visit ID: [id number] 46y, M Weight: 121.5 kg Height/Length: 70 in BMI: 38.4 ALLERGIES: None Given 09:28 11/02/2016 Chan Davis R.N. Medication Administered: NITROGLYCERIN [SL], Dose: 0.4 mg Tablets SL. Medication Ordered: NitroGLYCERIN SL 0.4 mg (x3 PRN Chest Pain). Given 09:33 11/02/2016 Chan Davis R.N. Medication Administered: NITROGLYCERIN [SL], Dose: 0.4 mg Tablets SL. Medication Ordered: NitroGLYCERIN SL 0.4 mg (x3 PRN Chest Pain). Given 09:35 11/02/2016 Chan Davis R.N. Medication Administered: ASPIRIN [PO], Dose: 324 mg Tablets PO. Medication Ordered: Aspirin PO 325 mg (NOW). Given 09:35 11/02/2016 Chan Davis R.N. Medication Administered: TYLENOL [PO] (ACETAMINOPHEN), Dose: 650 mg Tablets PO. Medication Ordered: Tylenol PO 650 mg (NOW). Given 09:41 11/02/2016 Chan Davis R.N. Medication Administered: NITROGLYCERIN PASTE [TOPICAL], Dose: 1 in. Paste Topical. Medication Ordered: NitroGLYCERIN Paste Topical 1 in. (NOW). Given 09:58 11/02/2016 Chan Davis R.N. Medication Administered: MORPHINE [IVP], Dose: 2 mg IVP, Site: #1 left wrist. Medication Ordered: Morphine IV 2 mg (NOW) (Sched q5m for X3) (Titrate for pain relief) 1 of 3. Given 10:11/02/2016 Chan Davis R.N. Medication Administered: MORPHINE [IVP], Dose: 2 mg IVP over 1 minute(s), Site: #1 left wrist. Medication Ordered: Morphine IV 2 mg (NOW) (Sched q5m for X3) (Titrate for pain relief) 2 of 3. Given 10:12 11/02/2016 Chan Davis R.N. Medication Administered: GI COCKTAIL WHITE [PO] (SIMETHICONE), Dose: 30 mL Oral Suspension PO. Medication Ordered: GI Cocktail WHITE PO 30 mL with Lidocaine Viscous Mouth/Throat 15 mL, Maalox Plus Oral 15 mL (NOW); Luther. Given 10:11/02/2016 Chan Davis R.N. Medication Administered: ATIVAN [IVP] (LORAZEPAM), Dose: 0.5 mg IVP over 1 minute(s), Site: #1 left wrist. Medication Ordered: Ativan IV 0.5 mg (NOW). Given 10:11/02/2016 Chan Davis R.N. Medication Administered: MORPHINE [IVP], Dose: 2 mg IVP over 1 minute(s), Site: #1 left wrist. Medication Ordered: Morphine IV 2 mg (NOW) (Sched q5m for X3) (Titrate for pain relief) 3 of 3. Given 12:12 11/02/2016 Chan Davis R.N. Medication Administered: TORADOL [IVP], Dose: 30 mg IVP, Site: #1 left wrist. Medication Ordered: Toradol IV 30 mg (NOW). Given 12:14 11/02/2016 Chan Davis R.N. Medication Administered: ATIVAN [IVP] (LORAZEPAM), Dose: 0.5 mg IVP over 1 minute(s), Site: #1 left wrist. Medication Ordered: Ativan IV 0.5 mg (NOW). Given 14:18 11/02/2016 Chan Davis R.N. Medication Administered: DILAUDID [IVP] (HYDROMORPHONE HCL PF), Dose: 1 mg IVP, Site: #1 left wrist. Medication Ordered: Dilaudid IV 1 mg (NOW).
--- NOTE | 2016-11-02 20:43 | ED DISCHARGE INSTRUCTIONS ---
Patient: ANUSHKA GIANG General Instructions [facility] VisitID: [id number] [address] [place] [address] 46y, M Registration Date/Time: 11/02/2016 Unstable angina .12 lead EKG performed. (Electronically signed by Naif Ann MD 11/02/2016 20:43)
--- NOTE | 2016-11-02 20:43 | ED DISCHARGE INSTRUCTIONS ---
Patient: ANUSHKA GIANG General Instructions [facility] VisitID: [id number] [address] [place] [address] 46y, M Registration Date/Time: 11/02/2016 Unstable angina .12 lead EKG performed. (Electronically signed by Naif Ann MD 11/02/2016 20:43)
--- NOTE | 2016-11-02 20:43 | ED MED RECONCILIATION SUMMARY ---
Patient: ANUSHKA GIANG Medication Reconciliation Report [facility] VisitID: [id number] [address] [place] [address] 46y, M Registration Date/Time: 11/02/2016 Weight: 121.5 kg Height/Length: 70 in. BMI: 38.4 ALLERGIES: None The patient's Home Medications are listed below: THE FOLLOWING MEDICATIONS NEED TO BE RECONCILED: Atorvastatin Calcium Oral 20 mg, daily Magnesium Oral MetFORMIN HCl Oral 500 mg, 2x a day Something for headaches The source(s) of the original Home Medication information: Not obtained. The following Medications were given to the patient in the Emergency Department: Nitroglycerin [SL] SL 0.4 mg, administered: 11/02/2016 9:28:00 AM Nitroglycerin [SL] SL 0.4 mg, administered: 11/02/2016 9:33:00 AM Aspirin [PO] PO 324 mg, administered: 11/02/2016 9:35:00 AM Tylenol [PO] PO 650 mg, administered: 11/02/2016 9:35:00 AM Morphine [IVP] IVP 2 mg, administered: 11/02/2016 9:58:00 AM Morphine [IVP] IVP 2 mg, administered: 11/02/2016 10:06:00 AM Morphine [IVP] IVP 2 mg, administered: 11/02/2016 10:20:00 AM GI COCKTAIL WHITE [PO] PO 30 mL, administered: 11/02/2016 10:12:00 AM Ativan [IVP] IVP 0.5 mg, administered: 11/02/2016 10:20:00 AM NITROGLYCERIN PASTE [TOPICAL] Topical 1 in., administered: 11/02/2016 9:41:00 AM Toradol [IVP] IVP 30 mg, administered: 11/02/2016 12:12:00 PM Ativan [IVP] IVP 0.5 mg, administered: 11/02/2016 12:14:00 PM Dilaudid [IVP] IVP 1 mg, administered: 11/02/2016 2:18:00 PM The following Medications were prescribed to the patient: None.
== END 2016-11-02 17:20 | disposition short-term general hospital (02) ==
LOC: MAM SRH 09:18 → ED SRH 09:19 → MAM SRH 09:19 → ED SRH 17:20
DX: I20.0 Unstable angina (principal); E78.5 Hyperlipidemia, unspecified; E11.9 Type 2 diabetes mellitus without complications; Z79.84 Long term (current) use of oral hypoglycemic drugs; Z79.899 Other long term (current) drug therapy; Z82.49 Family history of ischemic heart disease and other diseases of the circulatory system